=== PATIENT | male | born 1995 | race Caucasian/White ===

== ENCOUNTER 2021-01-30 08:36 | Emergency (ER) | payer OTHER, SELFPAY ==
--- NOTE | 2021-01-30 08:42 | ED.UPPEXIN ---
HPI - Extremity Injury (Upper) General Chief Complaint: Extremity Injury, Upper Stated Complaint: R SHOULDER PAIN Time Seen by Provider: 01/30/21 08:42 Source: patient and RN notes reviewed History of Present Illness HPI narrative: Patient is a 25-year-old male who presents the urgent care with complaints of right shoulder pain. Patient states is been ongoing for several weeks and his range of motion is now becoming limited due to the pain. Patient states that he is used ibuprofen, Tylenol, IcyHot without much relief. 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 Patient states that any type of movement exacerbates the pain. The only tolerable movement is posterior extension. Denies of any past injury to the right shoulder. Denies of any known injury to the right shoulder. No other acute complaints. No acute distress noted. Patient aware of the plan of care. Some parts of this dictation were generated by voice recognition software and may contain typographical and/or grammatical inaccuracies. Related Data Allergies Allergy/AdvReac Type Severity Reaction Status Date / Time No Known Allergies Allergy Mild Unverified 12/30/09 07:05 Review of Systems Review of Systems: Narrative: CONSTITUTIONAL: Denies fever, chills, or sweats. EYES: Denies visual changes, redness, or discharge. ENT: Denies rhinorrhea, congestion, sore throat, or otalgia. CARDIOVASCULAR: Denies chest pain, palpitations, or edema. RESPIRATORY: Denies cough or dyspnea. GASTROINTESTINAL: Denies abdominal pain, nausea, vomiting, or diarrhea. GENITOURINARY: Denies dysuria or hematuria. SKIN: Denies rash or itching. MUSCULOSKELETAL: Reports of right shoulder pain NEUROLOGIC: Denies headache, numbness, or weakness. All other systems reviewed are negative, except as documented in HPI. PMFSH Comments At the time of my signature, I reviewed and agree with the nursing past medical, surgical, social, and family history. There is no relevant family history pertinent to the patient complaint. Exam Narrative: Exam Narrative: GENERAL: This is a well-nourished, well-developed patient, in no apparent distress. HEAD: normocephalic, atraumatic. EYES: PERRL. Sclera clear/white. Vision is grossly intact. EARS: External ears normal NOSE: External nose normal with no obvious nasal discharge, nares without redness, no rhinorrhea. THROAT: Mucous membranes moist NECK: Neck supple SKIN: warm, intact with no suspicious lesions or rash, good texture and turgor. NEURO: awake, alert, and oriented to person, place and time. There were no obvious focal neurologic abnormalities. EXTREMITIES: Range of motion to right upper extremity/shoulder limited due to pain. Moderate tenderness to the lateral aspect of the right shoulder. Difficulty with abduction/flexion. Rotation within normal limits. Difficulty with posterior extension. Positive strong right radial pulse with capillary refill less than 2 seconds. No obvious injury/edema or erythema noted to the right shoulder. BACK: Nontender without deformity or crepitance. No flank tenderness. Course Vital Signs Vital signs: Vital Signs Temperature 98.6 F 01/30/21 08:45 Pulse Rate 92 01/30/21 08:45 Respiratory Rate 20 01/30/21 08:45 Blood Pressure 151/94 H 01/30/21 08:45 Pulse Oximetry 99 01/30/21 08:45 Temperature 98.6 F 01/30/21 08:45 Pulse Rate 92 01/30/21 08:45 Respiratory Rate 20 01/30/21 08:45 Blood Pressure 151/94 H 01/30/21 08:45 Pulse Oximetry 99 01/30/21 08:45 Reviewed-mention MDM - Extremity Injury (Upper) MDM Narrative Medical decision making narrative: Explained to the patient that our facility does not have the resources or correct imaging for the type of pain patient is having. X-ray would not evaluate ligament injuries. Advised the patient to follow-up with an orthopedic for further imaging and physical therapy referrals. Continue to do the IcyHot, heat, ice, ibupr
[2021-01-30 08:45] VITALS: BP 151/94; PULSE 92; RESP 20; TEMP 37; O2SAT 99
== END 2021-01-30 09:01 | disposition home or self-care (01) ==
PROVIDERS: Emergency Provider Nurse Practitioner Family
DX: M25.511 Pain in right shoulder (principal)
CPT/HCPCS: 99203; G0463

== ENCOUNTER 2021-02-09 12:59 | Outpatient (CLI) | payer OTHER, SELFPAY ==
--- NOTE | ~2021-02-09 | MR_ITS ---
EXAMINATION: MR shoulder RT wo con DATE: 02/09/2021 13:52 INDICATION: Right shoulder pain TECHNIQUE: Magnetic resonance imaging (MRI) of the right shoulder was performed without intravenous c ontrast. Sequences included axial PD-weighted FS FSE, coronal oblique PD-weighted FS FSE, coronal obl ique T2-weighted FS FSE, sagittal PD-weighted FS FSE, and sagittal T1-weighted SE. COMPARISON: Right shoulder radiographs dated 01/31/2021 FINDINGS: Coracoacromial arch: The acromion undersurface is curved in morphology (type II). The coracoacromial ligament is normal. A cromioclavicular joint is normal. Rotator cuff: The supraspinatus, infraspinatus and teres minor tendons are normal. The subscapularis tendon is norm al. Normal rotator cuff muscle bulk and signal. Biceps tendon, glenoid labrum and glenohumeral cartilage: Long head of the biceps tendon is normal. Glenoid labrum is normal. Glenohumeral cartilage is normal. Fluid: Physiologic amount of fluid in the glenohumeral joint and biceps tendon sheath. No loose osteochondra l bodies. Very small amount of likely reactive fluid subacromial/subdeltoid bursa although could not exclude minimal bursitis. Bones: Marrow edema surrounding a nondisplaced greater tuberosity likely avulsion fracture which underlies t he anterior and middle facets of the greater tuberosity. Marrow signal is otherwise normal. IMPRESSION: 1. Nondisplaced greater tuberosity avulsion fracture underlying the superior and middle facets of the supraspinatus and infraspinatus tendons. Reviewed, dictated and finalized at location A. IMPRESSION: 1. Nondisplaced greater tuberosity avulsion fracture underlying the superior an d middle facets of the supraspinatus and infraspinatus tendons.
== END 2021-02-09 13:00 | disposition home or self-care (01) ==
LOC: ANHIMG 13:02
PROVIDERS: Visit Provider Orthopaedic Surgery
DX: S42.254D Nondisplaced fracture of greater tuberosity of right humerus, subsequent encounter for fracture with routine healing (principal); X58.XXXD Exposure to other specified factors, subsequent encounter
CPT/HCPCS: 73221

== ENCOUNTER 2025-03-13 12:23 | Outpatient (CLI) | payer OTHER, SELFPAY ==
--- NOTE | 2025-03-13 | ECG_ITS ---
Test Date: 2025-03-13 13:12:51 Measurements Intervals [place] Rate: 69 P: 41 VT: 177 QRS: -16 QRSD: 104 T: 15 QT: 399 QTc: 428 Interpretive Statements SINUS RHYTHM EARLY PRECORDIAL R/S TRANSITION LEFT VENTRICULAR HYPERTROPHY AND ST-T CHANGE MINIMAL Q WAVES- HIGH LATERAL LEADS BORDERLINE T WAVE ABNORMALITY- INFERIOR LEADS BASELINE WANDER- V3 BORDERLINE ECG No previous ECG available for comparison Electronically Signed On 03-13-2025 13:49:22 CDT by Carroll Russell D.O.
[2025-03-13 13:12] LABS: Hematocrit 44.1 % (42.0-52.0); Hemoglobin 14.2 g/dL (14.0-18.0)
[2025-03-13 13:28] LABS: Anion Gap 9 mmol/L (4-12); Blood Urea Nitrogen 11 mg/dL (9-20); Calcium 9.2 mg/dL (8.4-10.2); Carbon Dioxide 28 mmol/L (22-30); Chloride 103 mmol/L (98-107); Estimated Glomerular Filt Rate > 60; Glucose 92 mg/dL (65-110); Potassium 3.9 mmol/L (3.4-5.0); Sodium 140 mmol/L (137-145)
--- OUTSIDE RECORDS SUMMARY | 2025-03-13 14:03 | XMS_ITS | Clinical Summary ---
Author Organization [facility] [place] [address] Address [address] [place] [id number] Care Team Providers Care [employer] Name Role Phone Cornell Modi MD Primary Care Provider [phone] Allergies No known active allergies Medications irbesartan (AVAPRO) 150 mg tabletIndications:E ncounter for medication refill Take 1 tablet (150 mg total) by mouth nightly 90 tablet 3 4 03/29/20 25 Active cephalexin (KEFLEX) 500 mg capsuleIndications: Skin/Soft Tissue Infection Take 1 capsule (500 mg total) by mouth 4 (four) times a day for 10 days 40 capsule 5 03/20/20 25 Active ondansetron ODT (ZOFRAN-ODT) 4 mg disintegrating tablet Take 1 tablet (4 mg total) by mouth every 4 (four) hours as needed for nausea or vomiting 30 tablet 5 Active HYDROcodone-acetami nophen (NORCO) 5-325 mg per tabletIndications:P ain Take 1 tablet by mouth every 6 (six) hours as needed for pain 14 tablet 5 Active Active Problems Problem Noted Date Diagnosed Date Hypertension, essential 12/07/2024 Assessment & Plan (12/07/2024 10:10 PM MINING SPECULATOR): Blood Pressure Follow-up: Lifestyle modifications education provided on sodium reduction, increase physical activity, reduce alcohol consumption, and weight reduction. BP is mildly elevated Higher suspicion present for obstructive sleep apnea, after reviewing Stop-Bang questionnaire-- considering PSG Continuing irbesartan Class 3 severe obesity due t o excess calories without serious comorbidity with body mass index (BMI) of 40.0 to 44.9 in adult 12/07/2024 Assessment & Plan (03/07/2025 3:04 PM CDT): BMI Follow-up includes: nutrition counseling, exercise counseling, and education provided. Assessment & Plan (12/07/2024 10:09 PM MINING SPECULATOR): BMI Follow-up includes: nutrition counseling, exercise counseling, and education provided. Body mass index 40.0-44.9, adult ([facility]) 12/07 Encounter for medical examination to establish c are 03/29/2024 Assessment & Plan (03/29/2024 3:39 PM CDT): A(n) initial well visit to establish care has been performed today. Hakan Madison is not up to date on screening tests. He is in need of hepatitis C and Cholesterol screening. He is not up to date on needed preventative vaccinations; He is in need of Covid-19 (booster). We discussed healthy lifestyle habits, educational material has been given. Medications reviewed, changes documented as per the medical record and discussed with patient along with risks vs benefits. Return in 6 months Encounters Date Type Department Care Team Description 03/10/2025 2:01 PM CDT - 03/10/2025 5:54 PM CDT Emergency [facility] Emergency Department [address] [place] [id number] Traumatic amputation of tip of left index finger, initial encounter (Primary Dx); Work related injury Discharge Disposition: Discharge to home or self care 03/07/2025 2:45 PM CDT Office Visit [facility] Primary Care at [address] [phone] Cornell Modi MD Hypertension, essential (Primary Dx); Class 3 severe obesity due to excess calories without serious comorbidity with body mass index (BMI) of 40.0 to 44.9 in adult ([facility]) 12/19/2024 Telephone [facility] Primary Care at [address] [address] Daylin Whyte MA 12/16/2024 Orders Only [facility] Primary Care at [address] [address] Cornell Modi MD from Last 3 Months Immunizations Immunization Administration Dates Next Due DTP / HiB 09/14/1995,1994,1994 ,1994 DTaP 05/26/1998 Hep A, Adult 04/19/2022 Hep B, Unspecified 07/06/1997,02/03/1997, 997 Influenza, Unspecified 12/07/2024(Deferr ed: Patient Refused),11/17/2023(Deferred: Patient Refused),11/17/2022(Deferred: Patient Refused) MMR 05/26/1998,06/26/1995 OPV 05/26/1998, 5,1994,1994, 4 Tdap 12/18/2017 Surgical History Surgery Date Site/Laterality Comments TONSILLECTOMY 11/16/2007 - 11/15/2008 Medical History Medical History Date Comments Hypertension Adiposity Family History Medical History Relation Name Comments Heart murmur Brother 1 Bipolar disorder Brother 2 Schizophrenia Brother 2 Hypertension Father No Known Problems Mother No Known Problems Sister 1 No Known Problems Sister 2 Relation Name Status Comments Brother 1 Alive Brother 2 Alive Father Alive Mother Alive Sister 1 Alive Sister 2 Alive Social History Tobacco Use Types Packs/Day Years Used Date Smoking Tobacco: Former Cigarettes 0.4 7 2 - 2016 Smokeless Tobacco: Never AUDIT-C Answer Date Recorded Q1: How often do you have a drink containing alc ohol? Monthly or less 03/29/2024 Q2: How many drinks containi ng alcohol do you have on a typical day when you are drinking? 1 or 2 03/29/2024 Q3: How often do you have si x or more drinks on one occasion? Never 03/29/2024 PHQ-2 Answer Date Recorded PHQ-2 Total Score (If total score is 3 or more points, staff should administer the PHQ-9) 0 03/07/2025 Exercise Vital Sign Answer Date Recorde d On average, how many days pe r week do you engage in moderate to strenuous exercise (like a brisk walk)? 3 days 03/07/2025 On average, how many minutes do you engage in exercise at this level? 30 min 03/07/2025 Personal Safety Answer Date Recorded Have you ever been in or are you currently in a harmful physical or emotional relationship or is someone making you feel afraid or unsafe? 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 Not on file Not on file Obstetrics History Last Filed Vital Signs Vital Sign Reading Time Taken Comments Blood Pressure 185/90 03/10/2025 5:50 PM CDT Pulse 85 03/10/2025 5:50 PM CDT Temperature 36 C (96.8 F) 03/10/2025 1:26 PM CDT Respiratory Rate 18 03/10/2025 5:50 PM CDT Oxygen Saturation 99% 03/10/2025 5:50 PM CDT Inhaled Oxygen Concentration - - Weight 137 kg (302 lb) 03/10/2025 1:26 PM CDT Height 180.3 cm (5' 11 ) 03/10/2025 1:26 PM CDT Body Mass Index 42.12 03/10/2025 1:26 PM CDT Plan of Treatment Health Maintenance Due Date Last Done Comments Covid-19 Vaccine ( season) 2024 04/19/2022, 05/25/2021, 05/04/2021 Regular Well Visit/Exam 18-64 03/29/2025 03/29/2024 Influenza Vaccine (Season Ended) 2025 Depression Screening 03/07/2026 03/07/2025, 12/07/2024, 03/29/2024 DTaP/Tdap/Td Vaccine (7 - Td or Tdap) 12/18/2027 12/18/2017, 05/26/1998, 09/14/1995, Additional history exists Hepatitis B Screening Completed 07/06/1997 , 02/03/1997, 12/20/1996 Hepatitis C Screening Completed 03/29/2024 HPV Vaccines Aged Out No longer eligi ble based on patient's age to complete this topic Pneumococcal vaccine <65 Aged Out No longer eligible based on patient's age to complete this topic Varicella Vaccines Discontinued Procedures Procedure Name Priority Date/Time Associated Diagnosis Comments XR FINGER 2ND INDEX LEFT ED 03/10/2025 1:40 PM CDT HEPATITIS C ANTIBODY Routine 03/29/2024 3:49 PM CDT Need for hepatitis C screening test from Last 3 Months or Most Recently Relevant to Health Maintenance Results * XR Finger 2nd Index Left (03/10/2025 1:40 PM CDT) Anatomical Region Laterality Modality Upper Extremities, Hand, Fingers Left Computed Radiography 03/10/2025 1:42 PM CDT Impressions 03/10/2025 1:42 PM CDT Laceration about the left index finger. No fracture. Electronically signed by: Gavin Lane M.D. Narrative 03/10/2025 1:42 PM CDT EXAMINATION: XR FINGER 2ND INDEX LEFT HISTORY: laceration Procedure Note Gavin Lane MD - 03/10/2025 EXAMINATION: XR FINGER 2ND INDEX LEFT HISTORY: laceration IMPRESSION: Laceration about the left index finger. No fracture. Electronically signed by: Gavin Lane M.D. Tanvi Knapp MD IMG XR PROCEDURES Final R esult * Hepatitis C antibody Blood (03/29/2024 3:49 PM CDT) Hep C Ab Nonreactive Nonreactive Comment: Interpretive Data Nonreactive: Antibodies to HCV not detected. Does NOT exclude the possibility of recent exposure to HCV. Equivocal: Equivocal for HCV antibodies. Supplemental molecular testing will be automatically performed to determine infection status in accordance with current CDC screening recommendations. Reactive: Positive for HCV antibodies. This may represent current or past HCV infection. Supplemental molecular testing will be automatically performed to determine current infection status in accordance with current CDC screening recommendations. Interpretive data was last revised on 2020. Blood 03/29/2024 3:49 PM CDT 03/29/2024 8:40 PM CDT us Cornell Modi MD LAB MICROBIOLOGY - GENERAL ORDERABLES Edited Result - Final Performing Organization Address City/[place] [address] [facility] Department [place] [address] from Last 3 Months or Most Recently Relevant to Health Maintenance Insurance [employer] GENERIC Care Teams [employer] Relationship Specialty Start Date End Date Cornell Modi MD [address] [address] PCP - General Family Medicine 03/29/24
--- OUTSIDE RECORDS SUMMARY | 2025-03-13 14:03 | XMS_ITS | Referral Summary ---
Author Organization [address] Address [address] [place] [address] Care Team Providers Care Manager Customer Service Name Role Phone Cornell Modi MD Primary Care Provider [phone] Encounters Date Type Department Care Team Description 03/10/2025 2:01 PM CDT - 03/10/2025 5:54 PM CDT Emergency [facility] Emergency Department [address] [place], [place] [id number] Traumatic amputation of tip of left index finger, initial encounter (Primary Dx); Work related injury Discharge Disposition: Discharge to home or self care 03/07/2025 2:45 PM CDT Office Visit [facility] Primary Care at [address] [phone] Cornell oMdi MD Hypertension, essential (Primary Dx); Class 3 severe obesity due to excess calories without serious comorbidity with body mass index (BMI) of 40.0 to 44.9 in adult (HCC) 12/19/2024 Telephone [facility] Primary Care at [address] [address] Daylin Whyte MA 12/16/2024 Orders Only [facility] Primary Care at [address] [address] Cornell Modi MD from Last 3 Months Allergies No known active allergies Medications irbesartan [...] 12/07/2024 Assessment & Plan (12/07/2024 10:10 PM STATION COOK): Blood Pressure Follow-up: Lifestyle modifications education provided [...] provided. Assessment & Plan (12/07/2024 10:09 PM STATION COOK): BMI Follow-up includes: nutrition counseling, exercise counseling, and education provided. Body mass index 40.0-44.9, adult ([facility]) 12/07 Encounter for medical examination to establish [...] risks vs benefits. Return in 6 months Immunizations Immunization Administration Dates Next Due DTP / HiB 09/14/1995,1994,1994 ,1994 DTaP 05/26/1998 Hep A, Adult 04/19/2022 Hep B, Unspecified 07/06/1997,02/03/1997, 997 Influenza, Unspecified 12/07/2024(Deferr ed: Patient Refused),11/17/2023(Deferred: Patient Refused),11/17/2022(Deferred: Patient Refused) MMR 05/26/1998,06/26/1995 OPV 05/26/1998, 5,1994,1994, 4 Tdap 12/18/2017 Social History Tobacco Use Types Packs/Day Years Used Date Smoking Tobacco: Former Cigarettes 0.4 7 2 010 - 2017 Smokeless Tobacco: Never AUDIT-C Answer Date Recorded [...] on file Legal Sex Male 11:12 PM STATION COOK Gender Identity Not on file Sexual Orientation Not on file 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 Electronically signed by: Gavin Lane M.D. us Tanvi Knapp MD IMG XR PROCEDURES Final [...] 3:49 PM CDT 03/29/2024 8:40 PM CDT Cornell Modi MD LAB MICROBIOLOGY - GENERAL ORDERABLES Edited Result - Final [place] [address] [address] Department [place] [address] from Last 3 Months or Most Recently Relevant to Health Maintenance Insurance [employer] Care Teams Manager Customer Service Relationship Specialty Start Date End Date Cornell Modi MD [address] [id number] PCP - General Family Medicine 03/29/24
--- OUTSIDE RECORDS SUMMARY | 2025-03-13 14:03 | XMS_ITS | Continuity of Care Document ---
Author Organization [facility] Address [address] [place] [address] [place] [address] Phone Care Team Providers Care Radiology Special Procedure Tech Name Role Phone Jhoan Rodríguez MD Unavailable Unavailable Allergies, Adverse Reactions, Alerts Substance Reaction Status Criticality No Known Allergies Active No Inform ation Medications Medication Instructions Dosage Effective Dates (start - stop) Status Comments irbesartan 150 mg tablet take 1 tablet by oral route every day 150 MG - Active Procedures Procedure Date PREV VISIT, EST, AGE 18-39 OFFICE/OUTPATIENT VISIT, EST OFFICE/OUTPATIENT VISIT, EST OFFICE/OUTPATIENT VISIT, EST PREV VISIT, NEW, AGE 18-39 OFFICE/OUTPATIENT VISIT, NEW Advance Directives Directive Yes / No Effective Date File Name No Information Encounters Encounter Description Practice Location Reason(s) For Visit Diagnoses Date Provider Providers Copied on Encounter [facility], [address] [place], [id number], tel:[phone] [facility] No Information [address] [place], [id number] , [place]. tel:[phone] PREV VISIT, EST, AGE 18-39 [facility], [address] [place], [place], [id number], tel:[phone] [facility] physical (chief complaint) Encounter for general adult medical exam w abnormal findingsAbnormal weight gainEssential (primary) hypertensionMixed hyperlipidemia [address], [place], [place], [id number] , [place]. tel:[phone] OFFICE/OUTPA TIENT VISIT, EST [facility], [address] [place], [id number], tel:[phone] [facility] HTn (chief complaint) weight gain1 (chief complaint) HLP (chief complaint) HyperlipidemiaEssen tial (primary) hypertensionAbnorma l weight gain [address] [place], [id number] , [place]. tel:[phone] OFFICE/OUTPA TIENT VISIT, EST [facility], [address] [place], [id number], [place] tel:[phone] [facility] HTN (chief complaint) headache1 (chief complaint) HLP (chief complaint) MigraineEssential (primary) hypertensionHyperli pidemia [address] [place], [id number] , [place]. tel:[phone] PREV VISIT, NEW, AGE 18-39 [facility], [address] [place], [id number], tel:[phone] [facility] physical (chief complaint) Encounter for general adult medical exam w abnormal findingsEssential (primary) hypertensionMigrain e [address] [place], [id number] , [place]. tel:[phone] Family History Family Member Type Diagnosis Age At Onset Father Problem Diabetes mellitus Father Problem Hypertension Mother Problem Migraines Brother Problem Alive and well Payers Payer name Insurance type Covered alliance party ID Authoriza tion(s) No Information Social History Type Description Quantity Date Captured Comments Sex Male Smoking Status No Information Chief Complaint And Reason For Visit No Information Plan Of Treatment Date Type Action Status No Information History Of Present Illness Encounter Date Complaint History Of Prese nt Illness physical Pt needs annual physical Pt has HTN pt takes irbesartan and his bp is stable Pt denies any chest pain or headache. Pt has been gaining weight Pt no longer has any headache. Pt has history of high TG Pt has not been diet and exercising. Pt denies any complaints HLP Pt has borderlin e high TG Pt is working on low carb and low fat diet weight gain1 Pt has been gain ing weight Pt is not very active. He is rather sedentary. HTn Pt has HTn pt ta kes irbesartan and his bp is borderline today .he states that he is out of irbesartan for couple of days. Pt denies any chest pain or headache Pt denies any side effects with irbesartan pt states that his bp is around 130/80 while on irbesartan at home HLP Pt has mildly hi gh TG Pt eats a lot of bread and pasta. headache1 Pt has not had a ny headache since taking irbesartan .Pt denies any head injury or waking up at night with headache. Pt denies any vision change HTN Pt takes irbesar molina and his bp is around 130/80 at home .Pt feels overall better with less fatigue and better mood .Pt denies any chest pain or headache Pt has normal UO physical Pt needs annual physical. .pt is obese .Pt states that he was at ortho office recently for his right shoulder issue and his bp was high around 150/100 .He has been checking his bp at home and is running around that all the time. He denies any chest pain. He also has chronic migraine since 7 years old. Pt has intermittent throbbing and pressure headache occurring about twice per month without any trigger. He denies any head injury or waking up at night with headache. He denies any worsening headache. he does snore at night but he denies feeling fatigue or any difficulty with breathing at night. He denies any other complaints. Instructions Date Instruction Additional Infor mation No Information Assessments Type Assessment Date No Information
--- OUTSIDE RECORDS SUMMARY | 2025-03-13 14:03 | XMS_ITS | Clinical Summary ---
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 Gender Identity Not on file Sexual Orientation Not on file Plan of Treatment Health Maintenance Due Date Last Done Comments Hepatitis C Virus (HCV) Screening 1994 TdaP Immunization 1994 Influenza Immunization (#1) 2024 SARS-COV-2 Immunization ( season) 2024 05/25/2021, 05/04/2021 Respiratory Syncytial Virus (RSV) Immunization (Adult) (1 - 1-dose 75+ series) 2069 Hepatitis B Immunization Completed 997, 02/03/1997, 12/20/1996 DTaP/Tdap/Td Immunization Discontinued 1997, 09/14/1995, 1994, Additional history exists Meningococcal Immunization (ACWY) Aged Out No longer eligible based on patient's age to complete this topic Pneumococcal Immunization Combined Aged Out No longer eligible based on patient's age to complete this topic Rotavirus Immunization Aged Out No lo nger eligible based on patient's age to complete this topic
== END 2025-03-13 12:24 | disposition home or self-care (01) ==
DX: S61.211A Laceration without foreign body of left index finger without damage to nail, initial encounter (principal); X58.XXXA Exposure to other specified factors, initial encounter
CPT/HCPCS: 36415; 80048; 85014; 85018; 93005